=== PATIENT | male | born 1955 | race African-American/Black ===

== ENCOUNTER 2023-10-13 05:38 | Emergency (ER) | payer OTHER, MEDICAID ==
[~2023-10-13] VITALS: Ht 182.9 cm; Wt 100.0 kg
[2023-10-13 05:55] VITALS: O2SAT 100
[2023-10-13] MEDS ORDERED: IBUP-2029 MT (09:08)
[2023-10-13] MEDS: IBUPROFEN 600MG TABLET PO ONE (09:15)
[2023-10-13 09:57] VITALS: BP 106/56; PULSE 73; RESP 18; TEMP 97.7
== END 2023-10-13 10:16 | disposition home or self-care (01) ==
LOC: ER 05:46
DX: M25.572 Pain in left ankle and joints of left foot (principal); M79.672 Pain in left foot; E11.9 Type 2 diabetes mellitus without complications; W19.XXXA Unspecified fall, initial encounter; Y93.89 Activity, other specified; Y99.8 Other external cause status; Y92.89 Other specified places as the place of occurrence of the external cause
CPT/HCPCS: 73610; 73630; 99284